=== PATIENT | female | born 1985 | race Caucasian/White ===

== ENCOUNTER 2017-02-25 09:16 | Emergency (ER) | payer OTHER ==
[2017-02-25] MEDS ORDERED: METOCLOPRAMIDE 5 MG/ML 2 ML VIAL IVP STA (09:49)
[2017-02-25] MEDS ORDERED: ACETAMINOPHEN TAB 500 MG TAB PO STA (09:49)
[2017-02-25] MEDS ORDERED: SODIUM CHLORIDE 0.9% 1,000 ML IV STA ×2 (09:49)
[2017-02-25] MEDS ORDERED: diphenhydrAMINE 50 MG/ML 1 ML VIAL IVP STA (09:49)
[2017-02-25] MEDS ORDERED: KETOROLAC 30 MG/ML 1 ML VIAL IVP STA (09:49)
[2017-02-25] MEDS ORDERED: ORPHENADRINE 30 MG/ML 2 ML VIAL IVP STA (09:50)
--- NOTE | 2017-02-25 09:54 | ED ---
Headache HPI - General Chief Complaint: Headache Stated Complaint: migraine Time Seen by Provider: 02/25/17 09:32 Source: RN notes reviewed, old records reviewed Mode of arrival: wheelchair Limitations: no limitations - History of Present Illness Initial Comments: This patient is a 31-year-old female presents today chief complaint of migraine headache yesterday evening into today. Patient reports that she has a history of migraines. She reports that she was started on Inderal, and takes Imitrex and Fioricet for migraines. She reports that her at-home medications are not working. She said multiple episodes of vomiting. She reports that the headache wraps around the front of her scalp behind her ears and neck. She does report some neck pain. She denies any fever or chills. She reports that she had no chest pain shortness of breath, abdominal pain. - Related Data Home Medications Medication Instructions Recorded Confirmed Qajahmjgla-GPN-Wuocksl-Codeine 1 cap PO QID PRN 02/25/17 02/25/17 [Fiorinal w/Cod [id number]] Pantoprazole Sodium [Protonix] 40 mg PO HS 02/25/17 02/25/17 Propranolol HCl 60 mg PO HS 02/25/17 02/25/17 Ranitidine HCl [Zantac] 150 mg PO HS 02/25/17 02/25/17 SUMAtriptan SUCCINATE [Imitrex] 100 mg PO DAILY PRN 02/25/17 02/25/17 Setlakin 0.15mg 1 tab PO HS 02/25/17 02/25/17 oxyCODONE ER [OxyCONTIN 15MG E.R] 15 mg PO Q12HR PRN 02/25/17 02/25/17 tiZANidine HCL [Zanaflex] 4 mg PO DAILY PRN 02/25/17 02/25/17 Previous Rx's Medication Instructions Recorded Ondansetron Odt [Zofran Odt] 4 mg PO Q8HR PRN #15 tab 02/25/17 Allergies Allergy/AdvReac Type Severity Reaction Status Date / Time egg Allergy Anaphylaxis Verified 02/25/17 10:25 Review of Systems ROS Statement: Those systems with pertinent positive or pertinent negative responses have been documented in the HPI. ROS Other: All systems not noted in ROS Statement are negative. 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 No distress. Limitations: no limitations General appearance: alert, in no apparent distress Head exam: Present: atraumatic, normocephalic, normal inspection Eye exam: Present: normal appearance, PERRL, EOMI. Absent: scleral icterus, conjunctival injection, periorbital swelling ENT exam: Present: normal exam, mucous membranes moist Neck exam: Present: normal inspection Respiratory exam: Present: normal lung sounds bilaterally. Absent: respiratory distress, wheezes, rales, rhonchi, stridor Cardiovascular Exam: Present: regular rate, normal rhythm, normal heart sounds. Absent: systolic murmur, diastolic murmur, rubs, gallop, clicks GI/Abdominal exam: Present: soft, normal bowel sounds. Absent: distended, tenderness, guarding, rebound, rigid Extremities exam: Present: normal inspection, full ROM, normal capillary refill. Absent: tenderness, pedal edema, joint swelling, calf tenderness Back exam: Present: normal inspection Neurological exam: Present: alert, oriented X3, CN II-XII intact, normal gait Expanded Patient oriented to: Present: person, place, time Speech: Present: fluid speech Cranial nerves: EOM's Intact: Normal Cerebellar function: Finger to Nose: Normal Upper motor neuron: Pronator Drift: Normal Sensory exam: Upper Extremity Light Touch: Normal, Lower Extremity Light Touch: Normal Motor strength exam: RUE: 5, LUE: 5, RLE: 5, LLE: 5 Eye Response: (4) open spontaneously Motor Response: (6) obeys commands Verbal Response: (5) oriented Rachele Total: 15 Psychiatric exam: Present: normal affect, normal mood Skin exam: Present: warm, dry, intact, normal color. Absent: rash Course Vital Signs 02/25/17 02/25/17 09:17 12:15 Temperature 97.0 F L 98.6 F Pulse Rate 69 63 Respiratory 18 16 Rate Blood Pressure 140/94 128/76 O2 Sat by Pulse 99 100 Oximetry - Reevaluation(s) Reevaluation #1: 02/25/17 11:17 Shows reevaluated after IV medications. She reports her headache is diminished at this time she rates it as 6 out of 10. Medical Decision Making - Medical Decision Making This patient is a 31-year-old female presents today chief complaint of migraine headache yesterday evening into today. Patient reports that she has a history of migraines. She reports that she was started on Inderal, and takes Imitrex and Fioricet for migraines. She reports that her at-home medications are not working. She said multiple episodes of vomiting. She reports that the headache wraps around the front of her scalp behind her ears and neck. Patient has no neurological deficits. No focal or lateralizing findings. Patient given IV fluids and migraine cocktail. She feels better at this time. She will be discharged with nausea medication to manage nausea with her at home migraine medication. Patient adibsed to follow up with PCP to discuss maintenence medication and return parameters discussed. Disposition Clinical Impression: Migraine Disposition: HOME SELF-CARE Condition: Good Instructions: Acute Headache (ED) Additional Instructions: Denies rest, increase her fluid intake. Follow-up with primary care provider. Return to the emergency department if any alarming signs or symptoms occur. Prescriptions: Ondansetron Odt [Zofran Odt] 4 mg PO Q8HR PRN #15 tab PRN Reason: Nausea Referrals: Graciela Bryan III, MD [Primary Care Provider] - 1-2 days Time of Disposition: 11:58
[2017-02-25] MEDS ORDERED: MORPHINE SULFATE 5 MG/ML SYRINGE IVP STA (11:10)
[2017-02-25 12:20] VITALS: BP 128/76; PULSE 63; RESP 16; TEMP 98.6
== END 2017-02-25 12:15 | disposition home or self-care (01) ==
LOC: EC 09:16
DX: G43.909 Migraine, unspecified, not intractable, without status migrainosus (principal); M54.2 Cervicalgia; F17.200 Nicotine dependence, unspecified, uncomplicated; Z79.899 Other long term (current) drug therapy; Z91.012 Allergy to eggs
CPT/HCPCS: 99284; 96374; 96375 ×4; 96361 ×2; J1200; J2360; J2765; J1885; J2274

== ENCOUNTER → 2018-02-14 | Outpatient (CLI) | payer OTHER ==
--- NOTE | 2018-02-14 21:55 | MR ---
EXAMINATION TYPE: MR angio neck wo/w con DATE OF EXAM: 02/14/2018 COMPARISON: None. 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 Severe headaches, dizziness, and neck pain for over 20 years causing pain or weakness into both arms and fingers per patient. CONTRAST: Standard multiplanar, multisequence MRI departmental protocol utilizing 10 mL intravenous Gadavist ga dolinium contrast. 2-D and 3-D reconstructed images are created on MRI scanner and reviewed. FINDINGS: There is normal three-vessel origin from the aortic arch without significant stenosis. The right common carotid artery shows normal origin from the right brachiocephalic artery. There is no si gnificant stenosis in the right common or internal carotid artery, tortuous course to the cervical po rtion of the right internal carotid artery is present. There is a patent right external carotid arter y without significant stenosis. There is no significant stenosis and left common or internal carotid artery with tortuous course to t he cervical portion of left internal carotid artery also noted. There is a patent external carotid ar lala on the left without significant stenosis. There is small caliber distal right vertebral artery which becomes nonvisualized suspect occluded or stenotic in the upper cervical spine. Left vertebral artery is patent to basilar artery without signi ficant stenosis. 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 No additional si gnificant stenosis identified.
== END | disposition home or self-care (01) ==
LOC: RADMRIMAIN 19:10
PROVIDERS: ATTEND Physician Assistant Medical
DX: M54.2 Cervicalgia (principal); G43.409 Hemiplegic migraine, not intractable, without status migrainosus; I65.09 Occlusion and stenosis of unspecified vertebral artery
CPT/HCPCS: 70549; A9579; A9585

== ENCOUNTER → 2023-09-14 | Outpatient (CLI) | payer OTHER ==
--- NOTE | 2023-09-15 11:09 | MR ---
EXAMINATION TYPE: MR brain wo/w con DATE OF EXAM: 09/14/2023 8:13 PM CLINICAL INDICATION:Female, 38 years old with history of G43.009 MIGRAINE R20.2 PARESTHESIA OF SKIN R 47.01; PHH, Migraines mostly left side of head, paresthesia of skin COMPARISON: 02/14/2018 TECHNIQUE: Multi planar, multi sequence imaging was performed through the brain including: T1, T2, In version recovery, susceptibility weighted imaging and gradient echo imaging and Diffusion weighted im aging. The patient was then given intravenous contrast and multi planar, T1 fat-saturation images wer e obtained. IV Contrast: 10 cc Gadavist FINDINGS: The diaz-white junctions, ventricular system, basal cisterns appear unremarkable. Pineal gland is T2 signal low T1 signal cysts measuring 6 mm. Diffusion-weighted imaging shows no evidence of restricte d diffusion to suggest acute/subacute infarct. Intracranial arterial flow voids are maintained. Midli ne structures show no abnormality. The susceptibility weighted images do not reveal any evidence for micro-hemorrhage. After administration of gadolinium, no abnormal enhancement is seen. The bone marrow signal is within normal limits. Paranasal sinuses and mastoid air cells: Mild scattered paranasal sinus disease. Visualized orbits: Orbital contents are intact. IMPRESSION: 1. No evidence of intracranial mass, acute/subacute infarct, or abnormal enhancement. 2. Pineal gland cyst measuring 6 mm. 3. Mild paranasal sinus mucosal thickening.
== END | disposition home or self-care (01) ==
LOC: RADMRIMAIN 20:00
PROVIDERS: ATTEND Family Medicine
DX: G43.009 Migraine without aura, not intractable, without status migrainosus (principal); R20.2 Paresthesia of skin; R47.01 Aphasia; R61 Generalized hyperhidrosis; R53.83 Other fatigue; F90.9 Attention-deficit hyperactivity disorder, unspecified type; F41.9 Anxiety disorder, unspecified; J34.89 Other specified disorders of nose and nasal sinuses; D35.4 Benign neoplasm of pineal gland
CPT/HCPCS: 70553; A9585

== ENCOUNTER → 2023-09-20 | Outpatient (CLI) | payer OTHER ==
[2023-09-21 02:39] LABS: Basophils # (A) 0.08 X 10*3/uL (0.00-0.10); Basophils % (A) 0.5 %; Eosinophils # (A) 0.41 X 10*3/uL (0.04-0.35); Eosinophils % (A) 2.4 %; HCT 44.4 % (37.2-46.3); HGB 14.7 g/dL (12.0-15.0); Lymphocytes # (A) 4.04 X 10*3/uL (0.90-5.00); Lymphocytes % (A) 23.8 %; MCH 32.4 pg (27.0-32.0); MCHC 33.1 g/dL (32.0-37.0); MCV 97.8 FL (80.0-97.0); Mean Platelet Volume 11.6 FL (9.5-12.2); Monocytes # (A) 0.76 X 10*3/uL (0.20-1.00); Monocytes % (A) 4.5 %; NRBC Per 100 WBC 0 X 10*3/uL (0.00-0.01); Neutrophils # (A) 11.66 X 10*3/uL (1.80-7.70); Neutrophils % (A) 68.4 %; Platelet Count 336 X 10*3/uL (140-440); RBC 4.54 X 10*6/uL (4.10-5.20); RDW 12.7 % (11.5-14.5); WBC 17.01 X 10*3/uL (4.50-10.00)
[2023-09-21 03:12] LABS: Erythrocyte Sedimentation Rate 12 mm/Hr (0-20)
[2023-09-21 03:19] LABS: ALT 12 U/L (8-44); AST 21 U/L (13-35); Albumin 4.5 g/dL (3.8-4.9); Albumin/Globulin Ratio 1.88 Ratio (1.60-3.17); Alkaline Phosphatase 99 U/L (41-126); BUN/Creat Ratio 7.14 Ratio (12.00-20.00); Calcium 9.5 mg/dL (8.7-10.3); Carbon Dioxide 21.8 mmol/L (21.6-31.8); Chloride 104 mmol/L (96-109); Globulin 2.4 g/dL (1.6-3.3); Glucose 101 mg/dL (70-110); Potassium 4.2 mmol/L (3.5-5.5); Rheumatoid Factor, Qnt <15 IU/mL (0-15); Sodium 139 mmol/L (135-145); T4, Free (Free Thyroxine) 1.19 ng/dL (0.80-1.80); Total Bilirubin 0.4 mg/dL (0.3-1.2); Total Protein 6.9 g/dL (6.2-8.2)
== END | disposition home or self-care (01) ==
LOC: LABWHC1 16:08
PROVIDERS: ATTEND Family Medicine
DX: Z13.29 Encounter for screening for other suspected endocrine disorder (principal); F90.9 Attention-deficit hyperactivity disorder, unspecified type; F41.9 Anxiety disorder, unspecified; G43.009 Migraine without aura, not intractable, without status migrainosus; G47.09 Other insomnia; R47.01 Aphasia; R23.2 Flushing; R61 Generalized hyperhidrosis; R10.84 Generalized abdominal pain; R20.2 Paresthesia of skin; R20.0 Anesthesia of skin; R53.81 Other malaise; R53.83 Other fatigue
CPT/HCPCS: 36415; 80053; 82306; 82607; 83036; 84439; 84443; 85025; 85652; 86140; 86431

== ENCOUNTER → 2024-01-28 | Outpatient (CLI) | payer OTHER ==
--- NOTE | 2024-01-30 15:46 | MR ---
EXAMINATION TYPE: MR angio head wo con DATE OF EXAM: 01/28/2024 7:06 PM COMPARISON: None. CLINICAL INDICATION: Female, 38 years old with history of G93.0 CEREBRAL CYST; PHH, Cerebral cysts TECHNIQUE: 3-D [id number] Axial with MIP reconstruction created on a separate workstation.. IV Contrast: mL (None, if empty) FINDINGS: Vertebral arteries: The vertebral arteries are patent. Vertebral arteries are: Codominant. Basilar artery: The basilar artery is intact. The basilar artery bifurcation is normal. Internal Carotid arteries: The cervical, petrous, cavernous and supraclinoid segments are normal. 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 MCA: Patent with no evidence of aneurysm. NUTRITION PARTNER: Patent with no evidence of aneurysm. PCOM: Hypoplastic bilaterally. Right internal auditory canal loop type III with vessel extending more than chcf through the inter nal auditory canal. Paranasal sinuses also thickening in the right maxillary sinus.r pineal gland cyst measuring up to 8 mm. IMPRESSION: 1. 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 2. No evidence of significant stenosis. 3. Right internal auditory canal vascular loop type III. 4. Pineal gland probable cyst measuring up to 8 mm. [facility], , 01/30/2024 3:44 PM
== END | disposition home or self-care (01) ==
LOC: RADMRIMAIN 18:32
PROVIDERS: ATTEND Nurse Practitioner Acute Care
DX: G93.0 Cerebral cysts (principal)
CPT/HCPCS: 70544

== ENCOUNTER → 2024-08-08 | Outpatient (CLI) | payer OTHER ==
[2024-08-08 16:57] LABS: INR 0.9 (<1.2); Partial Thromboplastin Time 26.5 sec (22.0-30.0); Prothrombin Time 10.5 sec (10.0-12.5)
[2024-08-09 01:50] LABS: Eosinophils # (A) 0.24 X 10*3/uL (0.04-0.35); Eosinophils % (A) 2.5 %; HCT 44.9 % (37.2-46.3); HGB 14.9 g/dL (12.0-15.0); Lymphocytes # (A) 2.94 X 10*3/uL (0.90-5.00); Lymphocytes % (A) 30.2 %; MCH 31.9 pg (27.0-32.0); MCHC 33.2 g/dL (32.0-37.0); MCV 96.1 FL (80.0-97.0); Mean Platelet Volume 11.4 FL (9.5-12.2); Monocytes # (A) 0.55 X 10*3/uL (0.20-1.00); Monocytes % (A) 5.7 %; NRBC Per 100 WBC 0 X 10*3/uL (0.00-0.01); Neutrophils # (A) 5.87 X 10*3/uL (1.80-7.70); Neutrophils % (A) 60.3 %; Platelet Count 353 X 10*3/uL (140-440); RBC 4.67 X 10*6/uL (4.10-5.20); RDW 12.2 % (11.5-14.5); WBC 9.73 X 10*3/uL (4.50-10.00)
[2024-08-09 02:39] LABS: BUN/Creat Ratio 12.29 Ratio (12.00-20.00); Blood Urea Nitrogen 8.6 mg/dL (9.0-27.0); Calcium 9.4 mg/dL (8.7-10.3); Chloride 110 mmol/L (96-109); Glucose 107 mg/dL (70-110); Potassium 4.3 mmol/L (3.5-5.5); Sodium 150 mmol/L (135-145)
== END | disposition home or self-care (01) ==
LOC: LABWHC1 15:41
PROVIDERS: ATTEND Family Medicine
DX: I72.9 Aneurysm of unspecified site (principal)
CPT/HCPCS: 36415; 80048; 85025; 85610; 85730